=== PATIENT | female | born 1955 | race Caucasian/White ===

== ENCOUNTER → 2016-09-22 | Outpatient (REF) | payer BC ==
[~2016-09-22] MED LIST: ACET-789 PO; ASCO1TAB22 PO; ASPI-860 PO; CARV6.25 PO; CYCL10TA45 PO; DULO60CA7 PO; LOSA100T8 PO; LOVA40TA2 PO; OMEP20CA12 PO; ONDAN4ODT PO; PRAM0.257 PO; SPRN25T PO; WARF5TAB PO; ZOLP5TAB PO
== END ==
LOC: LAB 15:41
PROVIDERS: ATTEND Family Medicine
DX: I42.8 Other cardiomyopathies (principal); Q21.1 Atrial septal defect
CPT/HCPCS: 80048

== ENCOUNTER 2016-09-23 07:38 | Day surgery (SDC) | payer BC ==
[~2016-09-23] VITALS: Ht 172.7 cm; Wt 90.0 kg
[~2016-09-23 07:38] MED LIST changes: +LACTATED RINGERS 1,000 ML IV SCH; -LOSA100T8 PO; -LOVA40TA2 PO; -PRAM0.257 PO; +SODIUM CHLORIDE FLUSH 3 ML SYR IV PRN; -SPRN25T PO
--- OUTSIDE RECORDS SUMMARY | 2016-09-23 07:42 | XMS REPORT ---
Author Author GENERATED, SYSTEM Organization Unknown Address Unknown Phone Unavailable Care Team Providers Care Surgical Nurse Practitioner Name Role Phone MD NEAL, ANNEL PP [phone] Reason For Visit Reason for Visit from 11/11/2014 12:10 PM:Pt Stated Reason for Adm : left shoulder scope possible rotator cuff repair Chief Complaint LT SHOULDER RCT,ARTHROSCOPY SHOULDER Social History Social History from 11/11/2014 4:12 PM:Tobacco Use? : Former SmokerSocial History from 11/11/2014 12:10 PM:Tobacco Use? : Former Smoker Functional Status Functional Status from 11/11/2014 3:39 PM:LOC : AlertFunctional Status from 2014 3:38 PM:LOC : AlertOriented To : Person,Place,EventFunctional Status from 2:41 PM:LOC : DrowsyFunctional Status from 11/11/2014 12:10 PM:LOC : AlertOriented To : Person,Place,Time,EventWeight Bearing Status : FullAssist Level : Independent# Assists : Independent Vital Signs Hospital Vital Signs from 11/11/2014 4:30 PM:Temp : 97.9Heart Rate : 79Resp Rate : 16Systolic BP (mmHg) : 106Diastolic BP (mmHg) : 79Mean BP (mmHg) : 90O2 Saturation (%) : 99Hospital Vital Signs from 11/11/2014 4:00 PM:Temp : 97.9Heart Rate : 81Resp Rate : 14Systolic BP (mmHg) : 135Diastolic BP (mmHg) : 78Mean BP ( mmHg) : 102O2 Saturation (%) : 95Hospital Vital Signs from 11/11/2014 3:45 PM: Heart Rate : 82Resp Rate : 13Systolic BP (mmHg) : 130Diastolic BP (mmHg) : 87Mean BP (mmHg) : 98O2 Saturation (%) : 98Hospital Vital Signs from 11/11/2014 3: 35 PM:Heart Rate : 77Resp Rate : 12Systolic BP (mmHg) : 126Diastolic BP (mmHg) : 77Mean BP (mmHg) : 93O2 Saturation (%) : 98Hospital Vital Signs from 11/11/2014 3:30 PM:Heart Rate : 72Resp Rate : 11Systolic BP (mmHg) : 137Diastolic BP (mmHg ) : 80Mean BP (mmHg) : 99O2 Saturation (%) : 98Hospital Vital Signs from 2014 3:25 PM:Temp : 97.9Heart Rate : 75Resp Rate : 13Systolic BP (mmHg) : 127Diastolic BP (mmHg) : 84Mean BP (mmHg) : 115O2 Saturation (%) : 100Hospital Vital Signs from 11/11/2014 3:20 PM:Heart Rate : 74Resp Rate : 18Systolic BP (mmHg ) : 112Diastolic BP (mmHg) : 80Mean BP (mmHg) : 90O2 Saturation (%) : 100Hospital Vital Signs from 11/11/2014 3:15 PM:Heart Rate : 74Resp Rate : 13Systolic BP (mmHg) : 126Diastolic BP (mmHg) : 79Mean BP (mmHg) : 93O2 Saturation (%) : 99Hospital Vital Signs from 11/11/2014 3:10 PM:Heart Rate : 78Resp Rate : 15Systolic BP (mmHg) : 123Diastolic BP (mmHg) : 74Mean BP (mmHg) : 98O2 Saturation (%) : 100Hospital Vital Signs from 11/11/2014 3:05 PM:Temp : 97.9Heart Rate : 72Resp Rate : 16Systolic BP (mmHg) : 119Diastolic BP (mmHg) : 73Mean BP (mmHg) : 92O2 Saturation (%) : 100Hospital Vital Signs from 11/11/2014 3 :00 PM:Heart Rate : 75Resp Rate : 16Systolic BP (mmHg) : 123Diastolic BP (mmHg) : 72Mean BP (mmHg) : 93O2 Saturation (%) : 100Hospital Vital Signs from 2014 2:55 PM:Heart Rate : 75Resp Rate : 16Systolic BP (mmHg) : 128Diastolic BP ( mmHg) : 77Mean BP (mmHg) : 95O2 Saturation (%) : 100Hospital Vital Signs from 11/11/2014 2:50 PM:Heart Rate : 84Resp Rate : 11Systolic BP (mmHg) : 131Diastolic BP (mmHg) : 79Mean BP (mmHg) : 100O2 Saturation (%) : 100Hospital Vital Signs from 11/11/2014 2:45 PM:Heart Rate : 80Resp Rate : 14Systolic BP (mmHg) : 122Diastolic BP (mmHg) : 75Mean BP (mmHg) : 93O2 Saturation (%) : 100Hospital Vital Signs from 11/11/2014 2:41 PM:Temp : 97.8Heart Rate : 81Resp Rate : 16Systolic BP (mmHg) : 126Diastolic BP (mmHg) : 76Mean BP (mmHg) : 100O2 Saturation (%) : 100Hospital Vital Signs from 11/11/2014 1:40 PM:Height : 5/6.25 ft,inPulse : 81Respirations : 20BP : 119/86Hospital Vital Signs from 11/11/2014 1: 35 PM:Height : 5/6.25 ft,inPulse : 77Respirations : 20BP : 116/82Hospital Vital Signs from 11/11/2014 1:30 PM:Height : 5/6.25 ft,inPulse : 77Respirations : 20BP : 110/78Hospital Vital Signs from 11/11/2014 1:25 PM:Height : 5/6.25 ft,inPulse : 75Respirations : 18BP : 117/77Hospital Vital Signs from 11/11/2014 1:20 PM:Height : 5/6.25 ft,inPulse : 75Respirations : 18BP : 119/75Hospital Vital Signs from 11/11/2014 1:15 PM:Height : 5/6.25 ft,inPulse : 72Respirations : 16BP : 118/ 96Hospital Vital Signs from 11/11/2014 12:10 PM:Weight : 87.8/ kgHeight : 5/6.25 ft,inHospital Vital Signs from 11/11/2014 11:25 AM:Weight : 87.8/ kgHeight : 5/ 6.25 ft,inTemperature : 97.0 FPulse : 82Respirations : 16BP : 119/68 Results Chemistry from 11/11/2014 11:50 AMSODIUM 140 MMOL/L (136-145 MMOL/L) POTASSIUM 4.2 MMOL/L (3.5-5.1 MMOL/L) CHLORIDE 106 MMOL/L (98-107 MMOL/L) TCO2 28.0 MMOL/L (21.0-32.0 MMOL/L) ANION GAP 6.0 MMOL/L L (8.0-16.0 MMOL/L) BUN 19 MG/DL H (7-18 MG/DL) CREATININE 0.78 MG/DL (0.43-0.83 MG/DL) BUN/CREATININE RATIO 24.4 H (9.1-17.0 ) GLUCOSE 101 MG/DL H (65-99 MG/DL) GFR EST NON AFR DUTCH 83 ML/MIN GFRA EST AFR AMER >90 ML/MIN CALCIUM 9.0 MG/DL (8.5-10.1 MG/DL)Coagulation from 11/11/2014 11:50 AMPROTHROMBIN TIME 10.3 SECONDS (9.4-11.5 SECONDS) INR 1.0 (0.9-1.1 ) PARTIAL THROMBOPLASTIN TIME 27.2 SECONDS (23.0-31.0 SECONDS) Problems Encounter Diagnosis Fall Risk Comment:Problem resolved by [employer] upon Discharge, Status: Resolved. Encounters Encounter Diagnosis Fall Risk Comment:Problem resolved by [employer] upon Discharge, Status: Resolved. Plan of Care Follow-up Appointments from 11/11/2014 4:12 PM:#1 Office appointment: : Dr. Aviles #1 Date/Time : 11/19/2014 3:45 PMAddress # 1 : [facility]: [address], [place], [place] - or Procedures Completed left shoulder arthroscopy, Left, by MD BRADEN AVILES, on 11/11/2014 1 :45 PMCompleted Lysis of adhesions left shoulder, by MD BRADEN AVILES, on 11/11 12:00 AMCompleted arthroscopy left shoulder, Left, by MD BRADEN AVILES , on 08/07/2014 8:23 AMCompleted debridement of partial left rotator cuff tear, by MD BRADEN AVILES, on 08/07/2014 12:00 AMCompleted subacromial decompression , by MD BRADEN AVILES, on 08/07/2014 12:00 AMCompleted distal clavical resection, by MD BRADEN AVILES, on 08/07/2014 12:00 AMCompleted biceps tenolysis, by MD BRADEN AVILES, on 08/07/2014 12:00 AMCompleted Procedure Code : 46433 Procedure Name: not valued, on 08/07/2014 12:00 AMCompleted Procedure Code: 51316 Procedure Name: not valued, on 08/07/2014 12:00 AMCompleted Procedure Code: 24500 Procedure Name: not valued, on 08/07/2014 12:00 AM Immunizations No immunizations administered or ordered. Hospital Course Hospital Discharge Instructions How to care for yourself at home from 11/11/2014 4:12 PM:Discharge Activity : Activity as tolerated,Do not engage in sports, heavy work or heavy lifting until your physician gives permissionDo not drive or operate machinery for: : 24 hours and until you can safely operate your vehicle in an emergency.Discharge Diet : As before hospitalization,Diet as toleratedDischarge Wound Care : Keep dressings dry,Notify your physician if the following develops : redness, swelling, drainage or color of drainage changes, odor or increased pain.Remove dressing in: : 2 daysCall your doctor if: : Fever over 101 F or severe chills,Tingling or numbness develops,You have persistent or worsening symptomsSpecific Discharge Teaching Instructions provided: : YesSpecific Discharge Teaching Instructions Reviewed: : OtherDischarge on Warfarin : No Allergies, Adverse Reactions, Alerts Adhesive Tape (as Miscellaneous allergen) causes Rash.vancomycin causes itching.Demerol causes Anaphylaxis.No Latex Allergy.No IV Contrast Allergy. Medication Medication reconciliation has not been performed.
[2016-09-23 07:54] VITALS: BP 105/73
[2016-09-23] MEDS ORDERED: LOSA100T8 PO (08:08)
[2016-09-23] MEDS ORDERED: SPRN25T PO (08:08)
[2016-09-23] MEDS ORDERED: LOVA40TA2 PO (08:08)
[2016-09-23] MEDS ORDERED: PRAM0.257 PO (08:08)
[2016-09-23] MEDS ORDERED: MIDAZOLAM 2 MG/2 ML (VERSED) VIAL ONE (08:32)
[2016-09-23] MEDS ORDERED: ALFENTANIL 500 MCG/ML (ALFENTA) 5 ML AMP IV ONE (08:32)
[2016-09-23] MEDS ORDERED: PROPOFOL 20 ML IV ONE (08:32)
[2016-09-23 10:16] VITALS: BP 100/68
[2016-09-23 10:40] VITALS: BP 127/66
--- NOTE | 2016-09-23 11:05 | OPERATIVE REPORT ---
DATE OF OPERATION: 09/23/2016 PRE-OPERATIVE DIAGNOSIS: 1. Colon screening. 2. Personal history of colon polyps. POST-OPERATIVE DIAGNOSIS: Normal colon OPERATIVE PROCEDURE: Total colonoscopy SURGEON: Edd Machado MD ANESTHESIA: IV conscious sedation, Monitored Anesthesia Services POSITION: Left lateral decubitus FINDINGS: 1. Mild tortuosity of the sigmoid colon. 2. Normal colon mucosa. 3. Good prep. OPERATIVE NOTE: Following satisfactory induction of analgesia a digital rectal exam was performed. This revealed no rectal mass. The sphincter tone was normal. The colonoscope was introduced per rectum and advanced under CO2 insufflation and direct vision to the cecum. A mild degree of tortuosity in the sigmoid required de-looping technique. The cecum was identified by convergence of the teniae, ileocecal valve, and palpation/transillumination of the right lower quadrant. Outside [employer] photographs were obtained. The above areas were again carefully inspected as the scope was slowly withdrawn. Retroflexed view of the rectum was normal. Excess insufflated CO2 was evacuated and the scope removed. The patient tolerated the procedure well and transferred to recovery in stable condition. RECOMMENDATIONS: Because of the patient's past history I recommend repeat colonoscopy in 5 years in the absence of symptoms.
== END 2016-09-23 10:44 | disposition home or self-care (01) ==
LOC: ASC 07:38
PROVIDERS: ATTEND Surgery
DX: Z12.11 Encounter for screening for malignant neoplasm of colon (principal); E78.00 Pure hypercholesterolemia, unspecified; G25.81 Restless legs syndrome; I42.0 Dilated cardiomyopathy; M79.7 Fibromyalgia; R73.03 Prediabetes; Z79.01 Long term (current) use of anticoagulants; Z86.73 Personal history of transient ischemic attack (TIA), and cerebral infarction without residual deficits; Z95.810 Presence of automatic (implantable) cardiac defibrillator; Z79.82 Long term (current) use of aspirin; K63.89 Other specified diseases of intestine; Z86.010 Personal history of colon polyps; Z79.899 Other long term (current) drug therapy
CPT/HCPCS: 36415; 45378; 84132; J2250; J7120